=== PATIENT | male | born 1970 ===

== ENCOUNTER 2017-06-13 09:23 | Emergency (ER) | payer SELFPAY ==
[2017-06-13] MEDS ORDERED: Naloxone 0.4 mg/ml Inj (Adult) IVP STA (09:40)
--- NOTE | 2017-06-13 09:43 | ED PDOC ---
HPI: Psych/Substance Abuse Time Seen by Provider: 06/13/17 09:30 Chief Complaint (Nursing): Altered Mental Status Chief Complaint (Provider): Altered Mental Status History Per: EMS Onset/Duration Of Symptoms: Unknown Current Symptoms Are (Timing): Still Present Additional Complaint(s): Rodolfo Mac is a 53 year old male brought in by EMS after found unresponsive on bus. No history or evidence of trauma, unknown medical history. Past Medical History Reviewed: Historical Data, Nursing Documentation, Vital Signs - Family History Family History: States: Unknown Family Hx - Allergies Allergies/Adverse Reactions: Allergies Allergy/AdvReac Type Severity Reaction Status Date / Time Unobtainable Allergy Verified 06/13/17 09:30 Review of Systems Review Of Systems: ROS cannot be obtained secondary to pt's inabilty to answer questions. Physical Exam - Reviewed Nursing Documentation Reviewed: Yes Vital Signs Reviewed: Yes - Physical Exam Appears: Positive for: Non-toxic, No Acute Distress Head Exam: Positive for: ATRAUMATIC, NORMOCEPHALIC Skin: Positive for: Normal Color, Warm Eye Exam: Negative for: Normal appearance, PERRL (Pupils pinpoint) Cardiovascular/Chest: Positive for: Regular Rate, Rhythm. Negative for: Murmur Respiratory: Positive for: Normal Breath Sounds. Negative for: Wheezing Gastrointestinal/Abdominal: Positive for: Normal Exam, Soft, Other (Surgical scar noted RUQ). Negative for: Tenderness Extremity: Positive for: Normal ROM, Other (No track jean.) Neurologic/Psych: Positive for: Motor/Sensory Deficits (Not responsive to normal or painful stimuli.). Negative for: Alert, Oriented - Progress Re-evaluation Time: 12:37 Condition: Improved (Awake alert oriented x 3 No focal neuro deficits) Medical Decision Making Medical Decision Making: Impression: Possible Overdose Plan: * Alcohol Serum * Narcan 0.4 mg IV * Reevaluation Scribe Attestation: Documented by Lydia Rao, acting as a scribe for Isidro Rodriguez MD. Provider Scribe Attestation: All medical record entries made by the Scribe were at my direction and personally dictated by me. I have reviewed the chart and agree that the record accurately reflects my personal performance of the history, physical exam, medical decision making, and the department course for this patient. I have also personally directed, reviewed, and agree with the discharge instructions and disposition. Disposition - Clinical Impression Clinical Impression: Polysubstance abuse - Patient ED Disposition Is Patient to be Admitted: No Counseled Patient/Family Regarding: Diagnosis, Need For Followup - Disposition Referrals: [facility] [Outside] Disposition: Routine/Home Disposition Time: 12:37 Condition: FAIR Instructions: Polysubstance Abuse (ED) Forms: [employer] (Hebrew)
[2017-06-13 09:48] VITALS: TEMP 97.2
[2017-06-13] MEDS ORDERED: Naloxone 0.4 mg/ml Inj (Adult) ONE (09:58)
[2017-06-13 13:19] VITALS: BP 134/76; PULSE 100; RESP 18; O2SAT 100
== END 2017-06-13 13:18 | disposition home or self-care (01) ==
LOC: H.ER 09:23 → EDBD 09:23 → H.ER 13:18
DX: F19.10 Other psychoactive substance abuse, uncomplicated (principal)
CPT/HCPCS: 82948; 96374; 99284; G0480; J2310

== ENCOUNTER 2017-07-21 11:32 | Emergency (ER) | payer SELFPAY ==
--- NOTE | 2017-07-21 12:22 | ED PDOC ---
HPI: Psych/Substance Abuse Time Seen by Provider: 07/21/17 12:03 Chief Complaint (Nursing): Alcohol Ingestion Chief Complaint (Provider): Alcohol abuse History Per: Patient History/Exam Limitations: no limitations Onset/Duration Of Symptoms: Days (today) Additional Complaint(s): Pt. states he was drinking a lot of alcohol and did heroine. Denies any other drugs. Has suicidal thoughts, not homicidal. Did not take anything else to hurt self. No nausea, vomit, diarrhea, abd pain. No fall. Found on the bus sleeping so brought to the ED. Past Medical History Reviewed: Nursing Documentation, Vital Signs Vital Signs: Last Vital Signs Temp 98.3 F 07/21/17 11:41 Pulse 86 07/21/17 11:41 Resp 18 07/21/17 11:41 BP 128/66 07/21/17 11:41 Pulse Ox 93 L 07/21/17 11:41 - Medical History PMH: No Chronic Diseases - Surgical History Surgical History: No Surg Hx - Family History Family History: States: Unknown Family Hx - Living Arrangements Living Arrangements: With Family - Social History Current smoker - smoking cessation education provided: No Alcohol: > 2 Drinks/Day Drugs: Opiates - Home Medications Home Medications: Ambulatory Orders Medication Instructions Recorded Unobtainable 07/21/17 - Allergies Allergies/Adverse Reactions: Allergies Allergy/AdvReac Type Severity Reaction Status Date / Time No Known Allergies Allergy Verified 07/21/17 12:19 Review of Systems ROS Statement: Except As Marked, All Systems Reviewed And Found Negative Psych: Positive for: Suicidal ideation Physical Exam - Reviewed Nursing Documentation Reviewed: Yes Vital Signs Reviewed: Yes - Physical Exam Appears: Positive for: Non-toxic, No Acute Distress Head Exam: Positive for: ATRAUMATIC, NORMAL INSPECTION, NORMOCEPHALIC Skin: Positive for: Normal Color, Warm, DRY Eye Exam: Positive for: EOMI, Normal appearance, PERRL ENT: Positive for: Normal ENT Inspection Neck: Positive for: Normal, Painless ROM Cardiovascular/Chest: Positive for: Regular Rate, Rhythm Respiratory: Positive for: CNT, Normal Breath Sounds Gastrointestinal/Abdominal: Positive for: Normal Exam, Bowel Sounds, Soft. Negative for: Tenderness Back: Positive for: Normal Inspection. Negative for: L CVA Tenderness, R CVA Tenderness Extremity: Positive for: Normal ROM. Negative for: Tenderness, Pedal Edema Neurologic/Psych: Positive for: Alert, slash trimmer II-XII, Oriented. Negative for: Motor/Sensory Deficits (strength 4/5 all extremities) - Laboratory Results Result Diagrams: 07/21/17 12:48 07/21/17 12:29 Interpretation Of Abn Labs: 455 etoh - ECG ECG: Positive for: Interpreted By Me, Viewed By Me ECG Rhythm: Positive for: Normal QRS, Normal ST Segment, Sinus Rhythm O2 Sat by Pulse Oximetry: 93 - CT Scan/US head Other Rad Studies (CT/US): Read By Radiologist Other Rad Interpretation: no acute - Progress ED Course And Treament: 181: Stable. AAOx3. More awake. Tolerated po. Dr. Barker to take over care. Fu on sobriety and consult psych. Disposition - Clinical Impression Clinical Impression: Alcohol abuse, Suicidal behavior - Patient ED Disposition Is Patient to be Admitted: Transfer of Care - Disposition Disposition: Transfer of Care Disposition Time: 18:22 Condition: FAIR Patient Signed Over To: Laura Barker
[2017-07-21 13:10] LABS: BASO % 0.6 % (0.0-2.0); EOS % 0.6 % (0.0-4.0); HEMOGLOBIN 13.7 g/dL (12.0-18.0); LYMPH # 1.2 K/uL (1.0-4.3); LYMPH % 21.7 % (20.0-40.0); MEAN CELL VOLUME 94.9 fl (80.0-94.0); MEAN CORPUSCULAR HEMOGLOBIN 32.1 pg (27.0-31.0); MEAN CORPUSCULAR HGB CONC 33.8 g/dL (33.0-37.0); MEAN PLATELET VOLUME 8.2 fl (7.2-11.7); MONO # 0.2 K/uL (0.0-0.8); MONO % 2.9 % (0.0-10.0); NEUT # 4.1 K/uL (1.8-7.0); NEUT % 74.2 % (50.0-75.0); NRBC % 0.3 % (0.0-0.0); RBC 4.26 Mil/uL (4.40-5.90); RED CELL DISTRIBUTION WIDTH 14.7 % (11.5-14.5); WHITE BLOOD COUNT 5.6 K/uL (4.8-10.8)
[2017-07-21 13:20] LABS: ACETAMINOPHEN < 10.0 ug/ml (10.0-30.0); SALICYLATE < 1.0 mg/dl
[2017-07-21 13:23] LABS: ALB/GLOB RATIO 1.1 (1.0-2.1); ALBUMIN 4.6 g/dL (3.5-5.0); ALT/SGPT 85 U/L (21-72); AST/SGOT 318 U/L (17-59); BLOOD UREA NITROGEN 10 mg/dl (9-20); CALCIUM 8.2 mg/dL (8.4-10.2); GFR AFRICAN-AMERICAN > 60; GFR NON-AFRICAN AMERICAN > 60
[2017-07-21 13:33] LABS: INR 1.1 (0.9-1.2); PROTHROMBIN TIME 11.8 Seconds (9.8-13.1)
[2017-07-21 13:34] LABS: PARTIAL THROMBOPLASTIN TIME 27.3 Seconds (25.6-37.1)
--- NOTE | 2017-07-21 13:35 | CT ---
PROCEDURE: CT HEAD WITHOUT CONTRAST. HISTORY: COMPARISON: None available. TECHNIQUE: Axial computed tomography images were obtained through the head/brain without intravenous contrast. Radiation dose: Total exam DLP = 946.7 mGy-cm. This CT exam was performed using one or more of the following dose reduction techniques: Automated exposure control, adjustment of the mA and/or kV according to patient size, and/or use of iterative reconstruction technique. FINDINGS: HEMORRHAGE: No intracranial hemorrhage. BRAIN: No mass effect or edema. No atrophy or chronic microvascular ischemic changes. VENTRICLES: Unremarkable. No hydrocephalus. CALVARIUM: Unremarkable. PARANASAL SINUSES: Left maxillary sinus secretions. Bilateral lamina papyracea deformity. MASTOID AIR CELLS: Unremarkable as visualized. No inflammatory changes. OTHER FINDINGS: None. IMPRESSION: No acute intracranial pathology.
[2017-07-21] MEDS ORDERED: Naloxone 0.4 mg/ml Inj (Adult) IVP STA (14:48)
[2017-07-21] MEDS ORDERED: Sodium Chloride 0.9% 1,000 ML IV STA (14:48)
[2017-07-21] MEDS ORDERED: Naloxone 0.4 mg/ml Inj (Adult) ONE (14:52)
[2017-07-21 16:29] VITALS: PULSE 88; RESP 16
[2017-07-21 17:17] LABS: BARBITURATES, UR NEGATIVE (NEGATIVE); PHENCYCLIDINE, UR NEGATIVE (NEGATIVE)
[2017-07-21 17:42] LABS: BENZODIAZEPINES, UR POSITIVE (NEGATIVE); OPIATES, UR POSITIVE (NEGATIVE)
--- NOTE | 2017-07-21 18:55 | ED PDOC ---
- Laboratory Results Result Diagrams: 07/21/17 12:48 07/21/17 12:29 - ECG O2 Sat by Pulse Oximetry: 93 Medical Decision Making Medical Decision Makin:00 Patient endorsed to me by Dr. Man pending clinical sobriety and crisis evaluation. 2340 Patient is alert and awake. Ambulatory with steady gait. Stable for discharge. Patient is cleared by Dr Hartman for discharge. Scribe Attestation: Documented by Lydia Rao, acting as a scribe for Laura Barker MD. Provider Scribe Attestation: All medical record entries made by the Scribe were at my direction and personally dictated by me. I have reviewed the chart and agree that the record accurately reflects my personal performance of the history, physical exam, medical decision making, and the department course for this patient. I have also personally directed, reviewed, and agree with the discharge instructions and disposition. Disposition Doctor Will See Patient In The: Office Counseled Patient/Family Regarding: Studies Performed, Diagnosis, Need For Followup - Clinical Impression Clinical Impression: Alcohol abuse, Substance abuse - POA Present On Arrival: None - Disposition Referrals: [facility] [Outside] Disposition: Routine/Home Disposition Time: 23:42 Condition: GOOD Instructions: Polysubstance Abuse (ED), Abuse of Alcohol (ED)
[2017-07-21 19:49] VITALS: BP 120/78; TEMP 99.3
[2017-07-21 23:43] VITALS: O2SAT 93
--- NOTE | 2017-07-22 07:57 | CARD ---
APPROVED REPORT EKG Measurement Heart [id number] NM 130P76 [id number] <Conclusion> Normal sinus rhythm Normal ECG
== END 2017-07-22 00:10 | disposition home or self-care (01) ==
LOC: MERGE 11:32 → EDBD 11:32 → H.ER 11:32
DX: F10.10 Alcohol abuse, uncomplicated (principal); R45.851 Suicidal ideations; F19.10 Other psychoactive substance abuse, uncomplicated
CPT/HCPCS: 70450; 80053; 82948; 84484; 85025; 85610; 85730; 93005; 96361; 96374; 99283; G0480; J2310; J7040; J7042

== ENCOUNTER 2017-11-23 03:12 | Emergency (ER) | payer SELFPAY ==
--- NOTE | 2017-11-23 05:30 | ED PDOC ---
HPI: Psych/Substance Abuse Time Seen by Provider: 11/23/17 03:55 Chief Complaint (Nursing): Alcohol Ingestion Chief Complaint (Provider): Alcohol Ingestion History Per: Patient, EMS History/Exam Limitations: no limitations Onset/Duration Of Symptoms: Mins (prior to arrival) Current Symptoms Are (Timing): Still Present Additional Complaint(s): 47 year old male presents to the emergency department via EMS after being publicly intoxicated prior to arrival. Patient admits to drinking alcohol and using heroin. He denies any problems besides knee problems. PMD: none provided Past Medical History Reviewed: Historical Data, Nursing Documentation, Vital Signs Vital Signs: Last Vital Signs Temp 97.8 F 11/23/17 03:50 Pulse 86 11/23/17 03:50 Resp 16 11/23/17 03:50 BP 127/75 11/23/17 03:50 Pulse Ox 95 11/23/17 03:50 - Medical History PMH: Denies: HIV, HTN, Seizures, Sexually Transmitted Disease - Surgical History Surgical History: No Surg Hx - Family History Family History: States: Unknown Family Hx - Social History Alcohol: > 2 Drinks/Day Drugs: Other (heroin) - Immunization History Hx Tetanus Toxoid Vaccination: No Hx Influenza Vaccination: No Hx Pneumococcal Vaccination: No - Home Medications Home Medications: Ambulatory Orders Medication Instructions Recorded No Known Home Med 07/15/17 - Allergies Allergies/Adverse Reactions: Allergies Allergy/AdvReac Type Severity Reaction Status Date / Time No Known Allergies Allergy Verified 08/03/17 22:42 Review of Systems ROS Statement: Except As Marked, All Systems Reviewed And Found Negative Psych: Positive for: Other (alcohol intoxication / heroin abuse) Physical Exam - Reviewed Nursing Documentation Reviewed: Yes Vital Signs Reviewed: Yes - Physical Exam Appears: Positive for: No Acute Distress (but disheveled) Head Exam: Positive for: ATRAUMATIC, NORMOCEPHALIC Skin: Positive for: Normal Color Eye Exam: Positive for: Normal appearance, EOMI, PERRL Respiratory: Negative for: Respiratory Distress Extremity: Positive for: Normal ROM Neurologic/Psych: Positive for: Alert, Oriented, Gait (steady), Other (slurred speech) - Laboratory Results Result Diagrams: 11/23/17 06:34 11/23/17 06:34 - ECG O2 Sat by Pulse Oximetry: 95 (RA) Pulse Ox Interpretation: Normal Medical Decision Making Medical Decision Making: Initial Impression: alcohol intoxication, substance abuse Time: 4:58 Initial Plan: --Alcohol serum --Drug screen --Monitor for clinical sobriety 0624 Alcohol serum: 360 Scribe Attestation: Documented by Glenna Renee, acting as a scribe for Laura Barker MD Provider Scribe Attestation: All medical entries made by the Scribe were at my direction and personally dictated by me. I have reviewed the chart and agree that the record accurately reflects my personal performance of the history, physical exam, medical decision making, and the department course for this patient. I have also personally directed, reviewed, and agree with the discharge instructions and disposition. Disposition - Clinical Impression Clinical Impression: Polysubstance abuse, Alcohol intoxication - Patient ED Disposition Is Patient to be Admitted: Transfer of Care Counseled Patient/Family Regarding: Studies Performed, Diagnosis - Disposition Referrals: [facility] [Outside] Disposition: Transfer of Care Disposition Time: 07:00 Condition: STABLE Instructions: Polysubstance Abuse (DC), Alcohol Abuse and Alcoholism (DC) Patient Signed Over To: Isidro Rodriguez
[2017-11-23 06:17] LABS: BARBITURATES, UR NEGATIVE (NEGATIVE); BENZODIAZEPINES, UR NEGATIVE (NEGATIVE); OPIATES, UR POSITIVE (NEGATIVE); PHENCYCLIDINE, UR NEGATIVE (NEGATIVE)
[2017-11-23 06:40] LABS: BASO # 0.1 K/uL (0.0-0.2); BASO % 1.6 % (0.0-2.0); EOS % 0.2 % (0.0-4.0); HEMOGLOBIN 14.3 g/dL (12.0-18.0); LYMPH # 1.8 K/uL (1.0-4.3); LYMPH % 26.5 % (20.0-40.0); MEAN CELL VOLUME 95.9 fl (80.0-94.0); MEAN CORPUSCULAR HEMOGLOBIN 32.9 pg (27.0-31.0); MEAN CORPUSCULAR HGB CONC 34.3 g/dL (33.0-37.0); MEAN PLATELET VOLUME 8.3 fl (7.2-11.7); MONO # 0.3 K/uL (0.0-0.8); MONO % 4.5 % (0.0-10.0); NEUT # 4.7 K/uL (1.8-7.0); NEUT % 67.2 % (50.0-75.0); RBC 4.36 Mil/uL (4.40-5.90); RED CELL DISTRIBUTION WIDTH 14.6 % (11.5-14.5); WHITE BLOOD COUNT 6.9 K/uL (4.8-10.8)
[2017-11-23 06:47] LABS: PARTIAL THROMBOPLASTIN TIME 34.1 Seconds (25.6-37.1); PROTHROMBIN TIME 11.6 Seconds (9.8-13.1)
[2017-11-23 06:56] LABS: CALCIUM 8.5 mg/dL (8.4-10.2); GFR AFRICAN-AMERICAN > 60; GFR NON-AFRICAN AMERICAN > 60
[2017-11-23 07:11] LABS: BLOOD UREA NITROGEN 13 mg/dl (9-20)
--- NOTE | 2017-11-23 09:07 | ED PDOC ---
- Laboratory Results Result Diagrams: 11/23/17 06:34 11/23/17 06:34 - ECG O2 Sat by Pulse Oximetry: 96 - Progress Re-evaluation Time: 09:06 Condition: Improved (Awake alert oriented x 3 no focal neuro deficits. Denies SI /HI) Disposition - Clinical Impression Clinical Impression: Polysubstance abuse - POA Present On Arrival: None - Disposition Referrals: [facility] [Outside] Disposition: Routine/Home Disposition Time: 09:07 Instructions: Polysubstance Abuse (DC) Forms: [id number] (Hebrew)
[2017-11-23 10:05] VITALS: BP 131/78; PULSE 87; RESP 20; TEMP 98
--- NOTE | 2017-11-23 14:40 | CARD ---
APPROVED REPORT EKG Measurement Heart [id number] MT 126P49 [id number] <Conclusion> Normal sinus rhythm Minimal voltage criteria for LVH, may be normal variant Nonspecific T wave abnormality Abnormal ECG
[2017-11-23 20:24] VITALS: O2SAT 95
== END 2017-11-23 10:10 | disposition home or self-care (01) ==
LOC: H.ER 03:12
DX: F19.10 Other psychoactive substance abuse, uncomplicated (principal); Y90.8 Blood alcohol level of 240 mg/100 ml or more
CPT/HCPCS: 80048; 84484; 85025; 85610; 85730; 93005; 99284; G0480